=== PATIENT | female | born 1980 | race Caucasian/White ===

== ENCOUNTER 2016-12-19 17:15 | Emergency (ER) | payer BC ==
[~2016-12-19] VITALS: Ht 157.5 cm; Wt 100.0 kg
[2016-12-19 17:16] VITALS: BP 152/74; PULSE 112; RESP 20; TEMP 99.1; O2SAT 98
--- NOTE | 2016-12-19 17:21 | PD ---
Physical Exam Date Seen by Provider: Dec 19, 2016 Time Seen by Provider: 17:19 Data Data Last Documented VS Vital Signs Date Time Temp Pulse Resp B/P Pulse Ox O2 Delivery O2 Flow Rate FiO2 12/19/16 17:16 99.1 112 20 152/74 98 Room Air MDM Supervised Visit with TR: No Narrative Course 36 YO F with complaint of sore throat. Patient states she taken a course of amoxicillin with no improvement. Vitals reviewed. Patient seen in triage, awaiting bed placement. Jena Gifford Dec 19, 2016 17:21
--- NOTE | 2016-12-19 17:37 | PD ---
HPI Chief Complaint: ENT Complaint Time Seen by Provider: 17:37 Travel History International Travel<30 days: No Contact w/Intl Traveler<30days: No Traveled to known affect area: No History of Present Illness HPI Patient is a 36-year-old female presented to emergency evaluation of a sore throat. Patient states she was diagnosed with strep throat 2 weeks ago, she reports being swabbed and having a positive test result. She was prescribed a 6 day course of Augmentin. She has been off of the antibiotics for 4 days, she reports increased throat pain, fatigue. She denies any fevers. She denies any dysphasia. She reports decreased appetite. She denies any significant past medical history. [facility] Past Medical History Medical History: Denies Significant Hx ?: Not LMP: 12/02/16 Tubal Ligation: Yes Past Surgical History Section: Yes Cholecystectomy: Yes Social History Alcohol Use: No Tobacco Use: No Substance Use: No Allergies-Medications (Allergen,Severity, Reaction): Coded Allergies: No Known Allergies (Unverified , 12/19/16) Reported Meds & Prescriptions Reported Meds & Active Scripts Active Florastor (Saccharomyces Boulardii) 250 Mg Cap 250 Mg PO BID 10 Days Clindamycin (Clindamycin HCl) 300 Mg Cap 300 Mg PO TID 10 Days Review of Systems Except as stated in HPI: all other systems reviewed are Neg HENT: Positive: Sore Throat, No: Neck Stiffness, Neck Pain Gastrointestinal: Positive: Loss of Appetite, No: Dysphagia Physical Exam Narrative GENERAL: Well-nourished, well-developed patient. SKIN: Focused skin assessment warm/dry. HEAD: Normocephalic. ENT: Mucosa pink and moist. No exudates. No uvular edema. No uvular, palatal, deviation. 2+ right half tonsillar hypertrophy. Airway is patent. Moderate erythema noted to posterior pharynx. No fever Airway patent. Nasal turbinates appear normal without nasal blood, purulent drainage or septal hematoma. EYES: No scleral icterus. No injection or drainage. NECK: Supple, trachea midline. No JVD or lymphadenopathy. CARDIOVASCULAR: Regular rate and rhythm without murmurs, gallops, or rubs. RESPIRATORY: Breath sounds equal bilaterally. No accessory muscle use. GASTROINTESTINAL: Abdomen soft, non-tender, nondistended. MUSCULOSKELETAL: No cyanosis, or edema. BACK: Nontender without obvious deformity. No CVA tenderness. Data Data Last Documented VS Vital Signs Date Time Temp Pulse Resp B/P Pulse Ox O2 Delivery O2 Flow Rate FiO2 12/19/16 19:47 98.9 12/19/16 19:15 122 15 98 Room Air 12/19/16 17:16 152/74 Orders Dexamethasone Inj (Decadron Inj) (12/19/16 17:45) Clindamycin (Cleocin) (12/19/16 17:45) Group A Rapid Strep Screen (12/19/16 17:37) Iv Access Insert/Monitor (12/19/16 18:41) Complete Blood Count With Diff (12/19/16 18:41) Basic Metabolic Panel (Bmp) (12/19/16 18:41) Sodium Chlor 0.9% 1000 Ml Inj (Ns 1000 M (12/19/16 18:45) Ibuprofen (Motrin) (12/19/16 18:45) Lactic Acid (12/19/16 18:42) Ibuprofen (Motrin) (12/19/16 19:45) Labs Laboratory Tests Test 12/19/16 12/19/16 18:05 18:55 Lactic Acid Level 1.4 mmol/L White Blood Count 14.0 TH/MM3 Red Blood Count 4.56 MIL/MM3 Hemoglobin 14.0 GM/DL Hematocrit 40.5 % Mean Corpuscular Volume 88.9 FL Mean Corpuscular Hemoglobin 30.6 PG Mean Corpuscular Hemoglobin 34.5 % Concent Red Cell Distribution Width 12.0 % Platelet Count 269 TH/MM3 Mean Platelet Volume 8.4 FL Neutrophils (%) (Auto) 86.1 % Lymphocytes (%) (Auto) 9.7 % Monocytes (%) (Auto) 2.9 % Eosinophils (%) (Auto) 1.0 % Basophils (%) (Auto) 0.3 % Neutrophils # (Auto) 12.0 TH/MM3 Lymphocytes # (Auto) 1.4 TH/MM3 Monocytes # (Auto) 0.4 TH/MM3 Eosinophils # (Auto) 0.1 TH/MM3 Basophils # (Auto) 0.0 TH/MM3 CBC Comment DIFF FINAL Differential Comment Sodium Level 137 MEQ/L Potassium Level 3.9 MEQ/L Chloride Level 107 MEQ/L Carbon Dioxide Level 23.2 MEQ/L Anion Gap 7 MEQ/L Blood Urea Nitrogen 12 MG/DL Creatinine 0.93 MG/DL Estimat Glomerular Filtration 68 ML/MIN Rate Random Glucose 111 MG/DL Calcium Level 8.7 MG/DL MDM Medical Decision Making Medical Screen Exam Complete: Yes Emergency Medical Condition: Yes Interpretation(s) Vital Signs Date Time Temp Pulse Resp B/P Pulse Ox O2 Delivery O2 Flow Rate FiO2 12/19/16 17:16 99.1 112 20 152/74 98 Room Air Differential Diagnosis Strep pharyngitis versus abscess versus epiglottitis versus other Narrative Course Patient is a 36-year-old female presenting with a sore throat, she was treated inadequately for strep throat. She was prescribed a 6 day course of Augmentin. She has had strep throat 3 times in the last several months. Patient was given dexamethasone and clindamycin in the emergency department. Strep swab pending. Patient is positive for group A strep. She will be started on a 10 day course of clindamycin. Prior to discharge patient's vital signs were reassessed. Her temp was 100.9 and her heart rate continued to be elevated at 114. At this time labs, IV access, IV fluids and ibuprofen ordered. Will reassess. CBC with a white count of 14, chemistry is unremarkable, lactic acid is normal. Patient was given 1 L of IV fluids, heart rate reassessed at 105. Patient's temp is 98.5. Patient meet sepsis criteria with elevated white count, heart rate, and temp. Patient will be given injection of penicillin G benzathine 1.2m units x 1 dose now. Pt was seen and evaluated by Dr. Ferguson. She was given strict return precautions. She is encouraged to follow-up with her primary doctor or return to emergency department for any new or worsening symptoms. Patient verbalizes understanding of instructions. Patient is stable for discharge. Sepsis Criteria SIRS Criteria (2 or more): Temp > 100.9 or < 96.8 (with 1 reading, other readings were afebrile prior to antipyretics), Heart rate over 90, WBC > 12246, < 4000 or > 10% bands Diagnosis Primary Impression: Pharyngitis due to Streptococcus species Referrals: Primary Care Physician Patient Instructions: General Instructions, Strep Throat (ED) Additional Instructions: Follow-up with your primary doctor Complete full course of antibiotics as prescribed Return to emergency department for any new or worsening symptoms Med/Other Pt SpecificInfo: Prescription(s) given Scripts Ibuprofen 800 Mg [id number] Mg PO Q6HR PRN (PAIN) #40 TAB Ref 0 Prov:Blaire Santamaria 12/19/16 Disposition: 01 DISCHARGE HOME Condition: Stable Blaire Santamaria Dec 19, 2016 17:37 Disposition: 01 DISCHARGE HOME Condition: Stable Blaire Santamaria Dec 19, 2016 17:37
[2016-12-19] MEDS ORDERED: DEXAMETHASONE SOD PHOS 20 MG/5 ML VIAL IM ONE (17:45)
[2016-12-19] MEDS ORDERED: CLINDAMYCIN 150 MG CAP PO ONE (17:45)
[2016-12-19] MEDS ORDERED: FLOR250C PO (18:34)
[2016-12-19] MEDS ORDERED: CLIN1CAP6 PO (18:34)
[2016-12-19 18:45] VITALS: PULSE 116; RESP 16; TEMP 100.9; O2SAT 98
[2016-12-19] MEDS ORDERED: SODIUM CHLOR 0.9% 1000 ML INJ 1,000 ML IV ONE (18:45)
[2016-12-19] MEDS ORDERED: IBUPROFEN 800 MG TAB PO ONE ×2 (18:45→19:45)
[2016-12-19 19:15] VITALS: PULSE 122; RESP 15; TEMP 98.5; O2SAT 98
[2016-12-19 19:27] LABS: BASOPHIL % 0.3 % (0.0-2.0); EOSINOPHIL # 0.1 TH/MM3 (0-0.4); HEMATOCRIT 40.5 % (35.0-46.0); HEMO FLAGS DIFF FINAL; LYMPH % 9.7 % (9.0-44.0); LYMPHOCYTE # 1.4 TH/MM3 (1.0-4.8); MEAN CELL VOLUME 88.9 FL (80.0-100.0); MEAN CORPUSCULAR HEMOGLOBIN 30.6 PG (27.0-34.0); MEAN CORPUSCULAR HGB CONC 34.5 % (32.0-36.0); MONO % 2.9 % (0.0-8.0); NEUT % 86.1 % (16.0-70.0); PLATELET COUNT 269 TH/MM3 (150-450); RED BLOOD COUNT 4.56 MIL/MM3 (4.00-5.30)
[2016-12-19 19:42] LABS: BICARBONATE 23.2 MEQ/L (21.0-32.0); POTASSIUM 3.9 MEQ/L (3.5-5.1)
[2016-12-19 19:47] VITALS: TEMP 98.9
[2016-12-19] MEDS ORDERED: IBUP800T23 PO (20:44)
[2016-12-19] MEDS ORDERED: PENICILLIN G BENZATHINE 1,200,000 UNITS/2 ML SYRINGE IM ONE (20:45)
== END 2016-12-19 22:56 | disposition home or self-care (01) ==
LOC: NEPD 17:15
DX: J02.0 Streptococcal pharyngitis (principal); B95.0 Streptococcus, group A, as the cause of diseases classified elsewhere
CPT/HCPCS: 80048; 83605; 85025; 87880; 96372; 99284; J0561; J1100; J7030

== ENCOUNTER 2017-01-01 20:48 | Emergency (ER) | payer BC ==
[~2017-01-01 20:48] MED LIST: IBUP800T23 PO
[2017-01-01 20:50] VITALS: BP 138/79; PULSE 87; RESP 16; TEMP 98.7; O2SAT 98
[2017-01-02] MEDS ORDERED: IBUPROFEN 400 MG TAB PO ONE
--- NOTE | 2017-01-02 00:04 | PD ---
HPI Chief Complaint: Injury Time Seen by Provider: 23:51 Travel History International Travel<30 days: No Contact w/Intl Traveler<30days: No Traveled to known affect area: No History of Present Illness HPI The patient is a 36-year-old female who presents emergency department for right wrist pain. The patient states she tripped and fell earlier today and landed on an outstretched right hand. The patient complains of right wrist pain that radiates into the thumb and down into the mid right forearm. The pain is worse with movement, slightly alleviated at rest. She denies any numbness or tingling of the right hand, and has been applying ice. She is left- hand dominant. She denies any other injuries with the fall. Symptoms are moderate, exacerbated after falling, and there are no current alleviating factors. [facility] Past Medical History Medical History: Denies Significant Hx Diminished Hearing: No ?: Not Tubal Ligation: Yes Past Surgical History Section: Yes Cholecystectomy: Yes Social History Alcohol Use: No Tobacco Use: No Substance Use: No Allergies-Medications (Allergen,Severity, Reaction): Coded Allergies: No Known Allergies (Unverified , 01/01/17) Reported Meds & Prescriptions Reported Meds & Active Scripts Active Ibuprofen 800 Mg Tab 800 Mg PO Q6HR PRN Review of Systems HENT: No: Headaches, Neck Pain Musculoskeletal: Positive: Limited ROM, Edema, Pain Skin: No Other (no abrasions or lacerations) Neurologic: No: Paresthesia, Sensory Disturbance Physical Exam Narrative GENERAL: Awake, alert, pleasant 36-year-old female who appears her stated age and is in no acute respiratory distress. SKIN: Focused skin assessment warm/dry. HEAD: Atraumatic. Normocephalic. MUSCULOSKELETAL: The patient does have mild edema to the right wrist. Positive right radial pulse. She is able to move the digits of the right hand, but limited ability to perform intrinsic hand muscles secondary to pain. Limited ability to flex and extend the right wrist secondary to pain. Limited ability to supinate and pronate the right wrist secondary to pain. She is able flex and extend the right elbow without difficulty. No tenderness of the proximal right humerus and right clavicle. NEUROLOGICAL: Awake and alert. No obvious cranial nerve deficits. Motor grossly within normal limits. Normal speech. Sensation is intact with radial, median, and ulnar distribution of the right hand. PSYCHIATRIC: Appropriate mood and affect; insight and judgment normal. Data Data Last Documented VS Vital Signs Date Time Temp Pulse Resp B/P Pulse Ox O2 Delivery O2 Flow Rate FiO2 01/01/17 23:54 18 01/01/17 20:50 98.7 87 138/79 98 Room Air Orders Wrist, Limited (Ap&Lat) (01/01/17 ) Ibuprofen (Motrin) (01/02/17 00:00) MDM Medical Decision Making Medical Screen Exam Complete: Yes Emergency Medical Condition: Yes Medical Record Reviewed: Yes Interpretation(s) X-ray of the right wrist reveals an old ulnar styloid fracture, no acute fractures noted. Differential Diagnosis Differential diagnosis includes fracture, dislocation, contusion, hematoma, sprain, strain. Narrative Course X-ray of the right wrist was obtained. The patient was administered ibuprofen 400 mg orally. X-ray reveals an old ulnar styloid fracture, no acute fractures. The patient will be placed in a Velcro wrist splint and provided a sling for comfort. She will be discharged home and ibuprofen for pain and is advised to follow-up with her primary physician. Return if symptoms worsen or progress. Diagnosis Primary Impression: Right wrist sprain Qualified Code: S63.501A - Right wrist sprain, initial encounter Patient Instructions: General Instructions Additional Instructions: Velcro wrist splint and sling as needed. Elevate, ice, and activity as tolerated. Ibuprofen as directed. Follow-up with your primary physician and/ or orthopedics if symptoms persist. Med/Other Pt SpecificInfo: Prescription(s) given Scripts Ibuprofen 600 Mg [id number] Mg PO Q6H PRN (Pain/Inflammation) #20 TAB Ref 0 Prov:Jason Aguero MD 01/02/17 Disposition: 01 DISCHARGE HOME Condition: Stable Jason Aguero MD Jan 02, 2017 00:03
--- NOTE | 2017-01-02 00:43 | RADRPT ---
EXAM DATE/TIME: 01/02/2017 00:11 [place] COMPARISON: No previous studies available for comparison. INDICATIONS : Right wrist pain from a fall. MEDICAL HISTORY : None. SURGICAL HISTORY : None. ENCOUNTER: Initial ACUITY: 1 day PAIN SCORE: 8/10 LOCATION: Right wrist FINDINGS: Normal bone density. Remote ulnar styloid process fracture. No acute fractures. CONCLUSION: No acute disease. Juan David Phan MD on January 02, 2017 at 0:42 Board Certified Radiologist. This report was verified electronically.
[2017-01-02] MEDS ORDERED: IBUP-232 PO (00:48)
== END 2017-01-02 01:43 | disposition home or self-care (01) ==
LOC: NEPC 20:48
DX: S63.501A Unspecified sprain of right wrist, initial encounter (principal); W01.0XXA Fall on same level from slipping, tripping and stumbling without subsequent striking against object, initial encounter
CPT/HCPCS: 73100; 99283; L3908